=== PATIENT | male | born 1980 | race Caucasian/White ===

== ENCOUNTER 2017-08-14 20:04 | Emergency (ER) | payer BC ==
[2017-08-14] MEDS: IBUPROFEN 600 MG TAB PO (21:05)
== END 2017-08-14 22:22 | disposition home or self-care (01) ==
LOC: FTE 20:04
DX: M54.5 Low back pain (principal); M25.511 Pain in right shoulder; Z87.891 Personal history of nicotine dependence
CPT/HCPCS: 72131; 73030-RT; 99284-25